=== PATIENT | female | born 1995 | race African-American/Black ===

== ENCOUNTER 2020-04-09 17:05 | Inpatient (IN) | payer MEDICAID, SELFPAY ==
[2020-04-09] VITALS (7 sets, daily range): BP systolic 94–119; BP diastolic 60–74; PULSE 74–86; RESP 12–17; TEMP 36.9; O2SAT 96–98; BMI 20.5
--- NOTE | 2020-04-09 17:24 | W.ED.PSYCH ---
Documented by User: Valentin Domínguez DO 04/14/20 13:27 HPI - Psych General: Chief Complaint: Psychiatric Symptoms Stated Complaint: SI/DEPRESSION Time Seen by Provider: 04/09/20 17:07 History of Present Illness: HPI Narrative: 28-year-old female presents with complaints of depression anxiety. She is having a difficult time managing some personal issues she feels as if she may kill her self she has not made any specific plan but had wandered out into the [place]. She has previously been hospitalized for suicidal ideation. She states she has not done anything to try to harm her self. She is currently approximately 22-24 wks . MD complaint: suicidal ideation and feels depressed Onset (ago): day(s) Duration: constant History of same: Yes Relieving factors: none Exacerbating factors: none Context: significant life stressor Associated psychiatric symptoms: depression and suicidal ideation Associated symptoms: Deny auditory hallucinations, visual hallucinations, delusions, depression, homicidal ideation, suicidal ideation or racing thoughts If self harm: admits thoughts of self harm Review of Systems Const: Denies: fever(s), chills, body aches, change in appetite, fatigue or malaise ENMT: Denies: throat pain, ear or mastoid pain, nasal discharge or nasal congestion Card: Denies: chest pain, edema, dyspnea on exertion or orthopnea Resp: Denies: dyspnea, productive cough or non-productive cough GI: Denies: abdominal pain, nausea, vomiting, hematemesis, coffee ground emesis, diarrhea, constipation, bloating, hematochezia or melena : Denies: flank pain, difficulty voiding, dysuria, urinary frequency or urinary urgency Skin/Breast: Denies: rash or pruritus Psych: Denies: depression, visual hallucinations, auditory hallucinations, suicidal ideation or homicidal ideation Physical Exam Const: COMMON NORMALS: no acute distress GENERAL APPEARANCE: cooperative and comfortable ORIENTATION/CONSCIOUSNESS: Yes awake, Yes oriented to person, Yes oriented to place and Yes oriented to time HENMT: COMMON NORMALS: normocephalic, atraumatic and hearing grossly normal bilaterally HEAD & SCALP: normocephalic and atraumatic Neck/C-Spine: COMMON NORMALS: no JVD Resp: COMMON NORMALS: normal respiratory effort, No retractions, No use of accessory muscles and clear to auscultation bilaterally AUSCULTATION: clear to auscultation bilaterally Cardio: COMMON NORMALS: no JVD, regular rate, regular rhythm and No murmurs present (Cardio) RATE: regular rate RHYTHM: regular rhythm GI: COMMON NORMALS: Soft to palpation and No hepatosplenomegaly present AUSCULTATION: Yes normoactive bowel sounds PALPATION: Yes Soft to palpation, No Tenderness to palpation present (GI), No Guarding due to palpation present (GI) and Yes No hepatosplenomegaly present Extremity: COMMON NORMALS: normal to inspection, capillary refill normal, no clubbing, cyanosis or edema, no calf tenderness and no pedal edema Neuro: SENSORIUM/ORIENTATION: Yes oriented to person, Yes oriented to place and Yes oriented to time Psych: THOUGHT CONTENT: No delusions Skin: COMMON NORMALS: no rashes or lesions noted GENERAL SKIN EXAM: no rashes or lesions noted MDM - Psych MDM Narrative: Medical decision making narrative: Care handed off to Dr. Batista at change of shift Lab Data: Labs: Lab Results 04/09/20 04/09/20 04/09/20 Range/Units 19:30 19:30 20:10 WBC 10.6 H (4.0-10.0) 10^3/ uL RBC 3.46 L (4.1-5.3) 10^6/u L Hgb 10.2 L (11.5-15.3) g/dL Hct 31.7 L (37.0-47.0) % MCV 91.6 (81-99) fL MCH 29.5 (28.0-34.0) pg MCHC 32.2 (30.0-36.0) g/dL RDW 11.9 L (12.1-15.1) % Plt Count 269 (130-400) 10^3/c mm MPV 9.0 (7.4-10.4) fL Neut % (Auto) 71.7 % Lymph % (Auto) 19.9 % Sargent % (Auto) 6.8 % Eos % (Auto) 0.9 % Baso % (Auto) 0.4 % Neut # (Auto) 7.61 (1.8-7.7) 10^3/u L Lymph # (Auto) 2.1 (0.8-4.8) 10^3/u L Sargent # (Auto) 0.7 (0.2-0.9) 10^3/u L Eos # (Auto) 0.1 (0.0-0.8) 10^3/u L Baso # (Auto) 0.0 (0.0-0.1) 10^3/u L Nucleated RBC % (a uto) 0 % Nucleated RBCs # 0.0 /100WBC Sodium (136-145) mmol/L Potassium (3.5-5.1) mmol/L Chloride (98-107) mmol/L Carbon Dioxide (22-29) mmol/L Anion Gap (5-19) BUN (6-20) mg/dL Creatinine (0.5-0.9) mg/dL GFR Calculation (90-130) mL/min Glucose (65-115) mg/dL Calculated Osmolal ity (285-295) mOsm/k g Calcium (8.5-10.5) mg/dL Total Bilirubin (0.15-1.2) mg/dL AST (0-32) U/L ALT (0-33) U/L Alkaline Phosphata se (35-105) IU/L Total Protein (6.6-8.7) g/dL Albumin (3.5-5.2) g/dL Globulin (1.3-4.6) g/dL Urine Color Yellow (Yellow) Urine Appearance Cloudy A (CLEAR) Urine pH 7.0 (5-7) Ur Specific Gravit y 1.015 (1.005-1.030) Urine Protein Neg (Negative) Urine Glucose (UA) Norm (Normal) Urine Ketones 2+ H (Negative) Urine Blood Neg (Negative) Urine Nitrate Negative (Negative) Urine Bilirubin Neg (Negative) Urine Urobilinogen 1 H (Negative) mg/dL Ur Leukocyte Randee ase Trace H (Negative) Urine RBC 0-4 H (0-2) /hpf Urine WBC 0-4 H (0-5) /hpf Ur Squamous Epith Cells 15-25 H (0-5) /hpf Amorphous Sediment Not Reportable Urine Bacteria 2+ H (NONE) /hpf Salicylates (3-10) mg/dL Urine Opiates Scre en Negative (Negative) ng/mL Acetaminophen (10-30) ug/mL Ur Barbiturates Sc reen Negative (Negative) ng/mL Ur Phencyclidine S crn Negative (Negative) ng/mL Ur Amphetamines Sc reen Negative (Negative) ng/mL U Benzodiazepines Scrn Negative (Negative) ng/mL Urine Cocaine Scre en Negative (Negative) ng/mL U Marijuana (THC) Screen Positive H (Negative) ng/mL Ethyl Alcohol (0-10) mg/dL 04/09/20 Range/Units 20:10 WBC (4.0-10.0) 10^3/ uL RBC (4.1-5.3) 10^6/u L Hgb (11.5-15.3) g/dL Hct (37.0-47.0) % MCV (81-99) fL MCH (28.0-34.0) pg MCHC (30.0-36.0) g/dL RDW (12.1-15.1) % Plt Count (130-400) 10^3/c mm MPV (7.4-10.4) fL Neut % (Auto) % Lymph % (Auto) % Sargent % (Auto) % Eos % (Auto) % Baso % (Auto) % Neut # (Auto) (1.8-7.7) 10^3/u L Lymph # (Auto) (0.8-4.8) 10^3/u L Sargent # (Auto) (0.2-0.9) 10^3/u L Eos # (Auto) (0.0-0.8) 10^3/u L Baso # (Auto) (0.0-0.1) 10^3/u L Nucleated RBC % (a uto) % Nucleated RBCs # /100WBC Sodium 134 L (136-145) mmol/L Potassium 3.5 (3.5-5.1) mmol/L Chloride 101 (98-107) mmol/L Carbon Dioxide 23 (22-29) mmol/L Anion Gap 13.5 (5-19) BUN 8 (6-20) mg/dL Creatinine 0.4 L (0.5-0.9) mg/dL GFR Calculation 241.5 H (90-130) mL/min Glucose 166 H (65-115) mg/dL Calculated Osmolal ity 280 L (285-295) mOsm/k g Calcium 9.2 (8.5-10.5) mg/dL Total Bilirubin 0.2 (0.15-1.2) mg/dL AST 19 (0-32) U/L ALT 12 (0-33) U/L Alkaline Phosphata se 90 (35-105) IU/L Total Protein 6.2 L (6.6-8.7) g/dL Albumin 3.7 (3.5-5.2) g/dL Globulin 2.5 (1.3-4.6) g/dL Urine Color (Yellow) Urine Appearance (CLEAR) Urine pH (5-7) Ur Specific Gravit y (1.005-1.030) Urine Protein (Negative) Urine Glucose (UA) (Normal) Urine Ketones (Negative) Urine Blood (Negative) Urine Nitrate (Negative) Urine Bilirubin (Negative) Urine Urobilinogen (Negative) mg/dL Ur Leukocyte Randee ase (Negative) Urine RBC (0-2) /hpf Urine WBC (0-5) /hpf Ur Squamous Epith Cells (0-5) /hpf Amorphous Sediment Urine Bacteria (NONE) /hpf Salicylates 1.2 L (3-10) mg/dL Urine Opiates Scre en (Negative) ng/mL Acetaminophen < 5.0 L (10-30) ug/mL Ur Barbiturates Sc reen (Negative) ng/mL Ur Phencyclidine S crn (Negative) ng/mL Ur Amphetamines Sc reen (Negative) ng/mL U Benzodiazepines Scrn (Negative) ng/mL Urine Cocaine Scre en (Negative) ng/mL U Marijuana (THC) Screen (Negative) ng/mL Ethyl Alcohol < 10 (0-10) mg/dL Discharge Plan Discharge Patient Disposition: Admitted As Inpatient Admit Provider: Tim Coleman Clinical Impression: Suicidal ideation Condition: Stable Referrals: [facility] [Outside] - 4-7 days (Follow up for intake assessment. Once completed you can be scheduled for the services you would like, therapy, medication management, etc. ) Discharge Diet: Regular Discharge Activity: Resume usual activity Patient Instructions: Citalopram (By mouth) Additional Instructions: Continue taking vitamins Seek care from a Kulwinder clinical quality rn as soon as possible Discharge Date/Time: 04/09/20 22:04 Coding Level of Care Code ED Dividing Machine Operator Helper for Chg Fwd Exam Comprehensive Documented by User: Eli Batista MD 04/09/20 20:55 HPI - Psych General: Chief Complaint: Psychiatric Symptoms Stated Complaint: SI/DEPRESSION Time Seen by Provider: 04/09/20 17:07 MDM - Psych MDM Narrative: Medical decision making narrative: Patient presents here with suicidal ideations and voluntarily wants to be admitted. Patient's blood work here is negative. She is and has no complaints. I spoke to Dr. Coleman and will admit to the psychiatric unit at this time. Lab Data: Labs: Lab Results 04/09/20 04/09/20 04/09/20 Range/Units 19:30 19:30 20:10 WBC 10.6 H (4.0-10.0) 10^3/ uL RBC 3.46 L (4.1-5.3) 10^6/u L Hgb 10.2 L (11.5-15.3) g/dL Hct 31.7 L (37.0-47.0) % MCV 91.6 (81-99) fL MCH 29.5 (28.0-34.0) pg MCHC 32.2 (30.0-36.0) g/dL RDW 11.9 L (12.1-15.1) % Plt Count 269 (130-400) 10^3/c mm MPV 9.0 (7.4-10.4) fL Neut % (Auto) 71.7 % Lymph % (Auto) 19.9 % Sargent % (Auto) 6.8 % Eos % (Auto) 0.9 % Baso % (Auto) 0.4 % Neut # (Auto) 7.61 (1.8-7.7) 10^3/u L Lymph # (Auto) 2.1 (0.8-4.8) 10^3/u L Sargent # (Auto) 0.7 (0.2-0.9) 10^3/u L Eos # (Auto) 0.1 (0.0-0.8) 10^3/u L Baso # (Auto) 0.0 (0.0-0.1) 10^3/u L Nucleated RBC % (a uto) 0 % Nucleated RBCs # 0.0 /100WBC Sodium (136-145) mmol/L Potassium (3.5-5.1) mmol/L Chloride (98-107) mmol/L Carbon Dioxide (22-29) mmol/L Anion Gap (5-19) BUN (6-20) mg/dL Creatinine (0.5-0.9) mg/dL GFR Calculation (90-130) mL/min Glucose (65-115) mg/dL Calculated Osmolal ity (285-295) mOsm/k g Calcium (8.5-10.5) mg/dL Total Bilirubin (0.15-1.2) mg/dL AST (0-32) U/L ALT (0-33) U/L Alkaline Phosphata se (35-105) IU/L Total Protein (6.6-8.7) g/dL Albumin (3.5-5.2) g/dL Globulin (1.3-4.6) g/dL Urine Color Yellow (Yellow) Urine Appearance Cloudy A (CLEAR) Urine pH 7.0 (5-7) Ur Specific Gravit y 1.015 (1.005-1.030) Urine Protein Neg (Negative) Urine Glucose (UA) Norm (Normal) Urine Ketones 2+ H (Negative) Urine Blood Neg (Negative) Urine Nitrate Negative (Negative) Urine Bilirubin Neg (Negative) Urine Urobilinogen 1 H (Negative) mg/dL Ur Leukocyte Randee ase Trace H (Negative) Urine RBC 0-4 H (0-2) /hpf Urine WBC 0-4 H (0-5) /hpf Ur Squamous Epith Cells 15-25 H (0-5) /hpf Amorphous Sediment Not Reportable Urine Bacteria 2+ H (NONE) /hpf Salicylates (3-10) mg/dL Urine Opiates Scre en Negative (Negative) ng/mL Acetaminophen (10-30) ug/mL Ur Barbiturates Sc reen Negative (Negative) ng/mL Ur Phencyclidine S crn Negative (Negative) ng/mL Ur Amphetamines Sc reen Negative (Negative) ng/mL U Benzodiazepines Scrn Negative (Negative) ng/mL Urine Cocaine Scre en Negative (Negative) ng/mL U Marijuana (THC) Screen Positive H (Negative) ng/mL Ethyl Alcohol (0-10) mg/dL 04/09/20 Range/Units 20:10 WBC (4.0-10.0) 10^3/ uL RBC (4.1-5.3) 10^6/u L Hgb (11.5-15.3) g/dL Hct (37.0-47.0) % MCV (81-99) fL MCH (28.0-34.0) pg MCHC (30.0-36.0) g/dL RDW (12.1-15.1) % Plt Count (130-400) 10^3/c mm MPV (7.4-10.4) fL Neut % (Auto) % Lymph % (Auto) % Sargent % (Auto) % Eos % (Auto) % Baso % (Auto) % Neut # (Auto) (1.8-7.7) 10^3/u L Lymph # (Auto) (0.8-4.8) 10^3/u L Sargent # (Auto) (0.2-0.9) 10^3/u L Eos # (Auto) (0.0-0.8) 10^3/u L Baso # (Auto) (0.0-0.1) 10^3/u L Nucleated RBC % (a uto) % Nucleated RBCs # /100WBC Sodium 134 L (136-145) mmol/L Potassium 3.5 (3.5-5.1) mmol/L Chloride 101 (98-107) mmol/L Carbon Dioxide 23 (22-29) mmol/L Anion Gap 13.5 (5-19) BUN 8 (6-20) mg/dL Creatinine 0.4 L (0.5-0.9) mg/dL GFR Calculation 241.5 H (90-130) mL/min Glucose 166 H (65-115) mg/dL Calculated Osmolal ity 280 L (285-295) mOsm/k g Calcium 9.2 (8.5-10.5) mg/dL Total Bilirubin 0.2 (0.15-1.2) mg/dL AST 19 (0-32) U/L ALT 12 (0-33) U/L Alkaline Phosphata se 90 (35-105) IU/L Total Protein 6.2 L (6.6-8.7) g/dL Albumin 3.7 (3.5-5.2) g/dL Globulin 2.5 (1.3-4.6) g/dL Urine Color (Yellow) Urine Appearance (CLEAR) Urine pH (5-7) Ur Specific Gravit y (1.005-1.030) Urine Protein (Negative) Urine Glucose (UA) (Normal) Urine Ketones (Negative) Urine Blood (Negative) Urine Nitrate (Negative) Urine Bilirubin (Negative) Urine Urobilinogen (Negative) mg/dL Ur Leukocyte Randee ase (Negative) Urine RBC (0-2) /hpf Urine WBC (0-5) /hpf Ur Squamous Epith Cells (0-5) /hpf Amorphous Sediment Urine Bacteria (NONE) /hpf Salicylates 1.2 L (3-10) mg/dL Urine Opiates Scre en (Negative) ng/mL Acetaminophen < 5.0 L (10-30) ug/mL Ur Barbiturates Sc reen (Negative) ng/mL Ur Phencyclidine S crn (Negative) ng/mL Ur Amphetamines Sc reen (Negative) ng/mL U Benzodiazepines Scrn (Negative) ng/mL Urine Cocaine Scre en (Negative) ng/mL U Marijuana (THC) Screen (Negative) ng/mL Ethyl Alcohol < 10 (0-10) mg/dL Discharge Plan Discharge Patient Disposition: Admitted As Inpatient Admit Provider: Tim Coleman Clinical Impression: Suicidal ideation Condition: Stable Referrals: [facility] [Outside] - 4-7 days (Follow up for intake assessment. Once completed you can be scheduled for the services you would like, therapy, medication management, etc. ) Discharge Diet: Regular Discharge Activity: Resume usual activity Patient Instructions: Citalopram (By mouth) Additional Instructions: Continue taking vitamins Seek care from a Kulwinder clinical quality rn as soon as possible Discharge Date/Time: 04/09/20 22:04 Coding Level of Care Code ED Dividing Machine Operator Helper for Deepthi Fwdavid Exam Comprehensive
--- NOTE | 2020-04-09 17:38 | PC.NURSE ---
Read and agree with triage assessment.
[2020-04-09] MEDS: nicotine 21 mg Patch 1 PATCH TRANSDERMA (20:12)
[2020-04-09 20:17] LABS: Amphetamines Screen Urine Negative (Negative); Barbiturates Screen Urine Negative (Negative); Benzodiazepines Screen Urine Negative (Negative); Bilirubin Urine Neg (Negative); Blood Urine Neg (Negative); Cocaine Screen Urine Negative (Negative); Glucose Urine UA Norm (Normal); Ketones Urine 2+ (Negative); Nitrate Urine Negative (Negative); Opiate Screen Urine Negative (Negative); PCP Screen Urine Negative (Negative); Protein Urine Neg (Negative); Specific Gravity, Urine 1.015 (1.005-1.030); THC Screen Urine Positive (Negative); Urine Appearance Cloudy (CLEAR); Urine Color Yellow (Yellow); Urobilinogen Urine 1 mg/dL (Negative)
[2020-04-09 20:18] LABS: Add Urine Microscopic? YES; Leukocyte Esterase Urine Trace (Negative)
[2020-04-09 20:26] LABS: Basophils % 0.4 %; Eosinophils # 0.1 10^3/uL (0.0-0.8); Eosinophils % 0.9 %; Hematocrit 31.7 % (37.0-47.0); Hemoglobin 10.2 g/dL (11.5-15.3); Lymphocytes # 2.1 10^3/uL (0.8-4.8); Lymphocytes % 19.9 %; Mean Corpuscular HGB Conc 32.2 g/dL (30.0-36.0); Mean Corpuscular Hemoglobin 29.5 pg (28.0-34.0); Mean Corpuscular Volume 91.6 fL (81-99); Monocytes # 0.7 10^3/uL (0.2-0.9); Monocytes % 6.8 %; Neutrophils # 7.61 10^3/uL (1.8-7.7); Neutrophils % 71.7 %; Nucleated Red Blood Cells % 0 %; Platelet Count 269 10^3/cmm (130-400); Red Blood Count 3.46 10^6/uL (4.1-5.3); Red Cell Distribution Width 11.9 % (12.1-15.1); White Blood Count 10.6 10^3/uL (4.0-10.0)
[2020-04-09 20:32] LABS: RBC Urine 0-4 /hpf (0-2); WBC Urine 0-4 /hpf (0-5)
[2020-04-09 20:33] LABS: Add Urine Culture? No; Bacteria Urine 2+ /hpf; Squamous Epithelial Cell Urine 15-25 /hpf (0-5)
[2020-04-09 20:49] LABS: Alanine Aminotransferase 12 U/L (0-33); Albumin Level 3.7 g/dL (3.5-5.2); Alkaline Phosphatase 90 IU/L (35-105); Anion Gap 13.5 (5-19); Aspartate Amino Transferase 19 U/L (0-32); Blood Urea Nitrogen 8 mg/dL (6-20); Calcium 9.2 mg/dL (8.5-10.5); Carbon Dioxide 23 mmol/L (22-29); Chloride 101 mmol/L (98-107); Globulin 2.5 g/dL (1.3-4.6); Glomerular Filtration Rate 241.5 mL/min (90-130); Glucose 166 mg/dL (65-115); Osmolality Calculated 280 mOsm/kg (285-295); Potassium 3.5 mmol/L (3.5-5.1); Salicylate 1.2 mg/dL (3-10); Sodium 134 mmol/L (136-145); Total Bilirubin 0.2 mg/dL (0.15-1.2); Total Protein 6.2 g/dL (6.6-8.7)
[2020-04-09 20:52] LABS: Acetaminophen < 5.0 ug/mL (10-30); Alcohol Level < 10 mg/dL (0-10)
--- NOTE | 2020-04-10 03:50 | PC.NURSE ---
Pt stated that she is homeless and 5 months . She has not had any care during her . Staff from ED were concerned with the interaction between this patient and her boyfriend. They said that he was intrusively answering questions for this patient and appeared to be controlling her. Pt denies any relationship abuse.
[2020-04-10 06:00] VITALS: BP 82/49; PULSE 62; RESP 17; TEMP 37.1; O2SAT 98
--- NOTE | 2020-04-10 12:17 | US_ITS ---
WS: [id number] OB ultrasound, 04/10/2020 Clinical Data: 22 weeks with no care Comparison: None. Findings: Cervix measures 3.81 cm and is closed. There is a single intrauterine in the breech presentation. The placenta is posterior and g rade 2. There is a normal amount of amnionic fluid. The heart rate is 136 beats per minute. Measurements of growth and development: BPD: 6.5 cm 26 weeks 2 days HC: 24.4 cm 26 weeks 4 days AC: 22.6 cm 27 weeks 0 days FL: 5.0 cm 27 weeks 0 days The estimated weight is 1000 or approximately or 2 pounds 3 ounces. The estimated gestational age is 26w5d with an CHAPITO of approximately 07/12/2020. anatomy shows a normal stomach, kidneys, bladder, female gender, upper lip, cord insertion, thr ee-vessel cord, 4 extremities, entire spine, four-chamber heart, RVOT, lateral cerebral ventricles, c erebellum and cisterna magna. US/US OB >= 14 weeks fetus [id number] Impression: 1. Single intrauterine in vertex presentation. 2. Estimated gestational age 26w5d with an CHAPITO of 07/12/2020. 3. heart rate 136 beats per minute.
--- NOTE | 2020-04-10 12:50 | P.SS_ITS ---
Short Stay Summary Providers Date of Admit/Discharge: 04/10/20 Attending Provider: Tim Coleman MD Chief Complaint: SI/DEPRESSION HPI History of Present Illness RUBY QUIROZ is a 24 year old female who presented to the ED with the following report: Chief Complaint: Psychiatric Symptoms Stated Complaint: SI/DEPRESSION Time Seen by Provider: 04/09/20 17:07 History of Present Illness: HPI Narrative: 28-year-old female presents with complaints of depression anxiety. She is having a difficult time managing some personal issues she feels as if she may kill her self she has not made any specific plan but had wandered out [place] the [place]. She has previously been hospitalized for suicidal ideation. She states she has not done anything to try to harm her self. She is currently approximately 22-24 wks . complaint: suicidal ideation and feels depressed Onset (ago): day(s) Duration: constant History of same: Yes Relieving factors: none Exacerbating factors: none Context: significant life stressor Associated psychiatric symptoms: depression and suicidal ideation Associated symptoms: Deny auditory hallucinations, visual hallucinations, delusions, depression, homicidal ideation, suicidal ideation or racing thoughts If self harm: admits thoughts of self harm. She was admitted to the [facility] for definitive treatment of those issues. On the unit she reported frrling fine today but with the following history. She had her initial psychiatric hospitalization in 2014 when she was 19. She endorsed family discord and feeling no one cared and that they were all against her. [place] and ended up following up at [facility] she believes. She thinks she stopped her medication and then her therapy and follow up in 2016 about a year to year and a half later. No additional treatment prior to now with this second psychiatric admission. She is 22-24 weeks and reports not getting care due to being homeless. There had been previous repoorts that she hadn't been recently to her OB in [place], but she reports being absent care. She endorses depression and struggles related to the challenges of the last several months. She reports that she has been off and on staying in her boyfriends car (with him) due to them being intermittently homeless generally due to drama she reports from different situations. They have been up to [place] where his family is, down to [place], also his family and they keep having the same outcome. She had been feeling a little down, but reports last night, after they lost housing a day or two ago again she was overwhelmed with thoughts of not wanting to deal with this anymore.She reported that she has felt depressed, hopeless, helpless and worthless, poor sleep, anxiety. We discussed the risks, benefits and alternatives of starting celexa 20 mg po qam and she understood and agreed to proceed as documented in this note. Psychiatric history: As above. Substance abuse history: Cigarettes 4-6 down from 2 -1 ppd before .No alcohol. Cannabis daily. No other drugs otherwise. No rehab or dui's. Family history: Denied except mother having mental issues and suicide attempts. Developmental history: No issues except speech therapy. Psychosocial history: She reports her parents were together when she was born.3 full siblings. childhood was rough and she denied any abuse. Graduated from high school. Endorses being a bisexual with her longest relationship being 4 years with her boyfriend. She has never been , never had children, never been the ga litary, and is an athiest. never had a job, is homeless. [facility] history[facility]. Medical history: She reports that she is 22 to 24 weeks and at this point denies having any care. Mental status examination: There is a well-nourished slender -Togolese female with adequate dress grooming and eye contact. No abnormal movements. Cooperative with exam speech was normal in volume. Mood described as great/perfect affect euthymic. Thought process organized. Thought content: Patient denied any suicidal or homicidal ideation, there were no delusions reported or noted, she denied any auditory or visual hallucinations. Attention and concentration were intact and memory appeared reliable but none were formally tested. She is alert and oriented x3. Insight and judgment appeared fair. Assessment: This is a 24-year-old -Togol[place] female who presented to the emergency room today reporting thoughts to kill herself who presents now reporting that those thoughts have resolved and she is, with a plan to go back to her family in [place] and have the baby there and utilize their support struggling with adjustment to the stressors that she has had including the and being homeless and reporting depression with an openness to initiate a medication and allow a consult for the safety of the baby. 1. Continue current medication. Except: Initiate p.o. every morning and any medications including vitamins at the ANIMAL GROOMER recommends. 2. Continue every 15 minute checks for safety. 3. Encourage individual, group and milieu therapy. 4. Await ultrasound and OB consult to determine safety for discharge. 5. Patient is a voluntary patient and is demonstrating no signs of credible lethality so will allow to discharge per her request. Home Meds/Allergies Home Medications and Allergies Allergies Allergy/AdvReac Type Severity Reaction Status Date / Time No Known Drug Allergies Allergy Unknown Verified 04/09/20 23:22 Vitals/I&O/Wt Last Vital Signs Temp 98.7 F 04/10/20 06:00 Pulse 62 04/10/20 06:00 Resp 17 04/10/20 06:00 BP 82/49 04/10/20 06:00 Pulse Ox 98 04/10/20 06:00 Weight last 48 hrs Weight 52.617 kg Hospital Course Admission Diagnoses: Patient admitted with adjustment disorder, depression, suicidal thinking and menisci. Hospital Course: Presented to the emergent reporting depression and suicidal. admitted to NPU and was open to OBGYN consult and starting celexa. She agreed to consult and we will await recommendation. Thusfar no significant lab or physical exam finding. She will be discharged to family in [place]. Discharge Summary: At the time of discharge the patient denied all lethality, was absent psychosis, and mood and anxiety were well managed. The patient endorsed a plan to avoid all drugs of abuse and to follow-up with outpatient services, as recommended. The patient was evaluated and deemed to be absent credible lethality, and was voluntary and so she was discharged. [facility] Data Data Completed and Pending: Pending at discharge Category Date Time Status US OB greater emily n 14 weeks fetus [ US OB >= 14 weeks Ultrasound 04/10/20 12:17 Ordered fetus [id number]] Rout ine Diagnoses at Discharge Discharge Diagnosis (1) Adjustment disorder with mixed disturbance of emotions and conduct: Status: Acute (2) Suicidal ideation: Status: Acute (3) Depression: Status: Acute (4) : Status: Acute Discharge Plan Discharge Patient Disposition: Home Condition: Stable Prescriptions: New citalopram 20 mg Tablet 20 mg PO DAILY 30 Days Qty: 30 RF: 1 Discharge Orders: Discharge Order (Routine); Ordered 04/10/20 Ordered By: Tim Coleman Referrals: [facility] [place] [facility] [Outside] - 4-7 days (Follow up for intake assessment. Once completed you can be scheduled for the services you would like, therapy, medication management, etc. ) Discharge Diet: Regular Discharge Activity: Resume usual activity Attestations Medical Necessity Statement*: Inpatient hospitalization would be beneficial but is not medically necessary. She will be allowed to discharge after OB consult. Time Spent in Patient Care*: greater than 30 min Specific Discharge Activities: Specific discharge activities: educating patient, discussing with pcp/other providers, discussing with case worker/social workers/dc planners, documenting/other paperwork and evaluating patient/reviewing data Quality Metrics Clinical Quality Measures: During this hospital stay, did patient experience: None Coding Level of Care Code Acute County Auditor for Charlag Fwd Diagnoses Adjustment disorder with mixed disturbance of emotions and conduct F43.25 Suicidal ideation R45.851 Depression F32.9 Z34.90
[2020-04-10 13:45] VITALS: BP 98/60; PULSE 69; RESP 18; TEMP 36.9; O2SAT 98
--- NOTE | 2020-04-10 14:52 | PC.NURSE ---
off unit for Ultrasound. accompanied by LIDA Seaman
[2020-04-10 15:10] VITALS: BP 98/60; PULSE 69; RESP 18; TEMP 36.9; O2SAT 98
[2020-04-10] MEDS: citalopram 20 mg Tablet PO (16:02)
== END 2020-04-10 18:08 | disposition home or self-care (01) | DRG 832 ==
LOC: ER 19:27 → NP 21:34
PROVIDERS: Family Medicine; Admitting Provider Psychiatry & Neurology Psychiatry; Emergency Provider Emergency Medicine; Visit Provider Psychiatry & Neurology Psychiatry
DX: O99.342 Other mental disorders complicating pregnancy, second trimester (principal); R45.851 Suicidal ideations; F43.25 Adjustment disorder with mixed disturbance of emotions and conduct; F41.8 Other specified anxiety disorders; Z3A.22 22 weeks gestation of pregnancy; O99.332 Smoking (tobacco) complicating pregnancy, second trimester; F17.210 Nicotine dependence, cigarettes, uncomplicated
CPT/HCPCS: 12345; 76805; 80053; 80306; 80307; 81001; 85025; 99284

== ENCOUNTER → 2020-04-18 13:02 | Outpatient (BNVA) | payer MEDICAID, SELFPAY | PROVIDERS: Visit Provider Obstetrics & Gynecology | DX: Z34.90 Encounter for supervision of normal pregnancy, unspecified, unspecified trimester (principal); N89.8 Other specified noninflammatory disorders of vagina; B96.89 Other specified bacterial agents as the cause of diseases classified elsewhere; N76.0 Acute vaginitis | CPT/HCPCS: 80053; 80307; 84315; 85027; 85660; 86592; 86762; 86803; 86850; 86900; 87210; 87340; 87491; 87591; 87806; 88175 ==

== ENCOUNTER → 2020-04-23 11:36 | Outpatient (BNVA) | payer MEDICAID, SELFPAY | PROVIDERS: Visit Provider Obstetrics & Gynecology | DX: O09.32 Supervision of pregnancy with insufficient antenatal care, second trimester (principal) | CPT/HCPCS: 82950 ==

== ENCOUNTER → 2020-05-07 08:27 | Outpatient (BNVA) | payer MEDICAID, SELFPAY | PROVIDERS: Visit Provider Obstetrics & Gynecology | DX: R73.09 Other abnormal glucose (principal); O09.32 Supervision of pregnancy with insufficient antenatal care, second trimester | CPT/HCPCS: 82951; 82952; 86787 ==

== ENCOUNTER → 2020-06-04 11:40 | Outpatient (BNVA) | payer MEDICAID, SELFPAY | PROVIDERS: Visit Provider Nurse Practitioner Women's Health | DX: O98.819 Other maternal infectious and parasitic diseases complicating pregnancy, unspecified trimester (principal); A74.9 Chlamydial infection, unspecified; Z3A.00 Weeks of gestation of pregnancy not specified | CPT/HCPCS: 84315; 87491; 87591 ==

== ENCOUNTER → 2020-06-18 10:54 | Outpatient (BNVA) | payer MEDICAID, SELFPAY | PROVIDERS: Visit Provider Obstetrics & Gynecology | DX: O99.322 Drug use complicating pregnancy, second trimester (principal); O09.33 Supervision of pregnancy with insufficient antenatal care, third trimester; B37.3 Candidiasis of vulva and vagina | CPT/HCPCS: 80307; 84315; 87081; 87210 ==

== ENCOUNTER 2020-07-01 10:30 | Outpatient (CLI) | payer MEDICAID, SELFPAY ==
[2020-07-01 10:30] VITALS: BMI 25.3
[2020-07-01 10:42] VITALS: BP 122/68; PULSE 75; TEMP 36.7
[2020-07-01 11:03] VITALS: BP 117/69; PULSE 75
--- NOTE | 2020-07-01 11:23 | PC.NURSE ---
This nurse went back to bedside to tell patient that she may leave but it would be against medical advice and she verbalized understanding. She stated that she is just not a patient person and that if she is not dilated that she is not going to sit around for 2hr to be rechecked again. This nurse verbalized understanding that made the patient aware of the risks and that her insurance may not pay for this visit, again patient verbalized understanding. This nurse then went over when to return to the OB dept and to please come back if anything changed, pt verbalized understanding and ambulated out of dept to wait for ride in the waiting room.
--- NOTE | 2020-07-01 12:35 | PM.ACPR ---
Procedure/Consent Procedure Narrative: [place]STRESS TEST: [place] [facility] [place]: 24-year-old 1 para 0, at 38 weeks and 2 days gestation, limited care, noncompliant, abdominal pain Date and time of test: 07/01/2020, 10:50 AM Baseline: 125 Variability: Moderate Accelerations: Present Decelerations: None Tocometry: Irregular contractions INTERPRETATION: NST reactive, reassuring status, continue kick counts
== END 2020-07-01 11:23 | disposition left against medical advice (07) ==
LOC: OPOB 10:35 → OBGYN 10:36
PROVIDERS: Visit Provider Obstetrics & Gynecology
DX: O26.899 Other specified pregnancy related conditions, unspecified trimester (principal); Z3A.00 Weeks of gestation of pregnancy not specified; R10.9 Unspecified abdominal pain
CPT/HCPCS: 12345; 59025; 83986; 99211